=== PATIENT | female | born 1970 | race Caucasian/White ===

== ENCOUNTER 2017-06-10 12:55 | Emergency (ER) | payer OTHER ==
--- NOTE | 2017-06-10 13:26 | ED Physician Chart ---
ED Chief Complaint/HPI - Patient Information Date Seen:: 06/10/17 Time Seen:: 13:05 Chief Complaint:: pain in left eye History of Present Illness:: A few minutes ago another nurse was breaking open the capsule of Colace and similar contents when in the patient's left eye. She complains of pain and burning sensation of the left eye especially of the lateral aspect of the upper eyelid. Historian:: Patient Review:: Nurse's Note Reviewed ED Review of Systems - Review of Systems General/Constitutional: No fever, No chills Skin: No skin lesions Head: No headache, No light-headedness Eyes: Pain ENT: No earache, No nasal drainage, No sore throat Neck: No neck pain, No swelling Cardio Vascular: No chest pain, No palpitations Pulmonary: No SOB, No cough GI: No nausea, No vomiting, No diarrhea G/U: No dysuria, No hematuria, No nacturia Desktop Publisher: No vaginal discharge, No abnormal vaginal bleed Musculoskeletal: No bone or joint pain, No back pain, No muscle pain Psychiatric: No prior psych history Allergic/Immuno: No urticaria, No angioedema Neurological: No syncope Family Medical History - Family Member Mother Ethnicity: Living Status: Still Living Other Medical History: HYPOTHYROIDISM ED Physical Exam - Physical Examination General/Constitutional: Well-developed, well-nourished, Alert, No distress Head: Atraumatic Eyes: PERRL Other Eyes comments:: 1/4 conjunctival erythema left eye; Left upper eyelid everted and lower lid retracted and no foreign body noted. Skin: Nl inspection, No rash, No skin lesions, No ecchymosis ENMT: External ears, nose nl, Lips, teeth, gums nl Neck: No nuchal rigidity Respiratory: Nl effort/Exclusion, Clear to Auscultation, No Wheeze/Rhonchi/Rales Cardio Vascular: RRR, No murmur, gallop, rubs GI: No tenderness/rebounding/guarding, No hernia : No CVA tenderness Extremities: No edema Neuro/Psych: No focal deficits Misc: Normal back ED Assessment - Assessment General Assessment: Patient has significant pain of her left eye so she is being taken off work for the rest of today's shift. - Procedures Procedures:: With manual lid retraction left eye was irrigated with about 250 mL of normal saline; left eye was fluorescein negative; fluorescein irrigated from left eye with normal save ED Septic Shock - . Is Septic Shock (SBP<90, OR Lactate>4 mmol\L) present?: No ED Reassessment (Disposition) - Reassessment Reassessment Condition:: Improved - Diagnosis Diagnosis:: Chemical conjunctivitis left eye - Aftercare/Follow up Instructions Aftercare/Follow-Up Instructions:: Refer to Discharge Instructions - Patient Disposition Discharge/Transfer:: Home Condition at Disposition:: Stable, Improved
[2017-06-10] MEDS ORDERED: Acetaminophen 500 MG TAB PO ONE (14:09)
[2017-06-10] MEDS ORDERED: Acetaminophen 500 MG TAB ONE (14:12)
[2017-06-10] MEDS ORDERED: Fluorescein Sodium 1 mg Ophth Strip ONE (14:21)
[2017-06-10] MEDS ORDERED: Fluorescein Sodium 1 mg Ophth Strip LEFT EYE ONE (14:26)
== END 2017-06-10 15:00 | disposition home or self-care (01) ==
LOC: ER 12:55
DX: H10.212 Acute toxic conjunctivitis, left eye (principal)
CPT/HCPCS: 99283; J7040; Z7502; Z7610